=== PATIENT | male | born 1970 | race Caucasian/White ===

== ENCOUNTER → 2016-06-29 | Outpatient (CLI) | payer OTHER ==
--- NOTE | 2016-06-29 14:57 | DI ---
MRI LEFT SHOULDER SCAN, 06/29/2016 12:41 PM: Clinical History: Left shoulder impingement syndrome. Previous Exam: None at this facility. Technique: Axial, coronal, and sagittal fat saturated PD; axial gradient FE; coronal fat saturatedT2 weighted; sagittal T2 weighted. There is no soft tissue edema or abnormal bone signal pattern. Coronal scans show moderate arthrosis of the AC joint with a small amount of fluid in the subacromion bursa. There is a small to moderate a mount of joint fluid with synovitis in the region of the axillary pouch and in the tendon sheath of t he long head of the biceps muscle. There is mild tendinosis of the supraspinatus tendon. The infraspi natus tendon is normal. There is a type II SLAP tear with a vertical cleavage plane extending to the biceps tendon. There is no complete separation of the labrum from the biceps tendon to indicate this is a "bucket-handle" labral tear or a type III SLAP tear. The inferior labrum and the IGHL complex ar e intact. Axillary scans show mild tendinosis of the attachment of the subscapularis tendon to the lesser tuber osity. The posterior labrum is normal. There is high attachment of the anterior band of the inferior glenohumeral ligament with an absent anterosuperior labrum. The tendon of the long head of the biceps muscle is normal. There is a fissure in the anterior portion of the articular surface of the glenoid fossa. Sagittal scans show synovitis in the subscapularis recess and confirms the tendinosis of the subscapu jil and supraspinatus tendons. There is a type II acromion. There is no muscle atrophy or muscle ed jc. Readin. There is a small to moderate joint effusion with synovitis present in the subscapularis recess, t he rotator interval, and the axillary pouch. This diffuse involvement with synovitis can be seen with adhesive capsulitis. Mild tendinosis of the subscapularis and supraspinatus tendons is present, and there is tenosynovitis in the extra-articular sleeve of the tendon of the long head of the biceps mus mina.. There is a type II SLAP tear. Fissuring is noted in the anterior aspect of the cartilaginous zuñiga rface of the glenoid fossa. Moderate AC joint arthrosis is present. 2. The infraspinatus and teres minor tendon and the tendon of the long head of the biceps muscle are normal. There is no muscle atrophy or edema. There is a type II acromion.
== END ==
LOC: MRI 12:36
PROVIDERS: ATTEND Orthopaedic Surgery
DX: M75.42 Impingement syndrome of left shoulder (principal); M25.412 Effusion, left shoulder; M65.812 Other synovitis and tenosynovitis, left shoulder; S43.432A Superior glenoid labrum lesion of left shoulder, initial encounter; M19.012 Primary osteoarthritis, left shoulder
CPT/HCPCS: 73221